=== PATIENT | female | born 1970 | race Caucasian/White ===

== ENCOUNTER 2017-11-21 06:53 | Emergency (ER) | payer MEDICAID ==
[2017-11-21] MEDS ORDERED: KETOROLAC 60 MG/2 ML VIAL IM STA (07:28)
[2017-11-21] MEDS ORDERED: DEXAMETHASONE 10 MG/ML VIAL PO STA (07:28)
[2017-11-21] MEDS ORDERED: oxyCOD/ACETAMIN 5 MG/325 MG TABLET PO STA (07:28)
--- NOTE | 2017-11-21 07:28 | ED Physician Documentation ---
PD HPI SKIN - Stated complaint Stated Complaint: RASH/UPPER RT SIDE PX - Chief complaint Chief Complaint: General - History obtained from History obtained from: Patient - History of Present Illness Timing - onset: How many days ago (2-3) Timing - duration: Days (initially with some aching in right chest 2-3 days ago without obvious injury or reason. Started with some itching in right chest yesterday then rash last evening, increasing into today. Very painful. Feeling of general malaise as well.) Timing - details: Gradual onset, Still present Location: Chest (right chest in band at just below the breast level.) Quality / character: Itchy, Painful, Discolored (red), Vesicular Associated symptoms: Myalgias. No: Fever Contributing factors: No: Exposed to medication, Exposed to food, Insect bite / sting Similar symptoms before: Has not had sx before Recently seen: Not recently seen Review of Systems Constitutional: reports: Chills, Myalgias, Fatigue. denies: Fever Nose: denies: Rhinorrhea / runny nose, Congestion Throat: denies: Sore throat Respiratory: denies: Cough GI: denies: Abdominal Pain, Nausea, Vomiting, Diarrhea : denies: Dysuria, Frequency Skin: reports: Rash, Lesions Neurologic: denies: Focal weakness, Numbness, Headache PD PAST MEDICAL HISTORY - Past Medical History Past Medical History: No Cardiovascular: None Respiratory: None Neuro: None Endocrine/Autoimmune: None GI: None [employer]: None : None HEENT: None Psych: None Musculoskeletal: None Derm: None - Past Surgical History Past Surgical History: Yes - Present Medications Home Medications: Ambulatory Orders Medication Instructions Recorded Confirmed Acyclovir 800 mg PO 5XD #35 tablet 11/21/17 Amitriptyline [Elavil] 25 mg PO HS #30 tablet 11/21/17 Dexamethasone [Decadron] 4 mg PO DAILY #5 tablet 11/21/17 Oxycodone HCl/Acetaminophen 1 each PO Q6H PRN #25 tablet 11/21/17 [Percocet 5-325 mg Tablet] - Allergies Allergies/Adverse Reactions: Allergies Allergy/AdvReac Type Severity Reaction Status Date / Time iron AdvReac Anaphylaxis Verified 11/21/17 07:04 - Social History Does the pt smoke?: No Smoking Status: Never smoker Does the pt drink ETOH?: Yes Does the pt have substance abuse?: No - Immunizations Immunizations are current?: Yes - POLST Patient has POLST: No PD ED PE NORMAL - Vitals Vital signs reviewed: Yes - General General: Alert and oriented X 3, No acute distress, Well developed/nourished - Neck Neck: Supple, no meningeal sign, No adenopathy - Respiratory Respiratory: No respiratory distress - Derm Derm: Warm and dry, Other (right chest with band of blistering red patches just below breast level to front sternum and around to the back, c/w shingles. ) - Extremities Extremities: No deformity, No tenderness to palpate - Neuro Neuro: Alert and oriented X 3, No motor deficit, Normal speech Results - Vitals Vitals: Vital Signs - 24 hr 11/21/17 11/21/17 07:01 07:57 Temperature 36.7 C Heart Rate 75 74 Respiratory 18 16 Rate Blood Pressure 148/98 H 162/89 H O2 Saturation 99 97 Oxygen O2 Source Room air PD MEDICAL DECISION MAKING - ED course Complexity details: considered differential, d/w patient - Sepsis Event Vital Signs: Vital Signs - 24 hr 11/21/17 11/21/17 07:01 07:57 Temperature 36.7 C Heart Rate 75 74 Respiratory 18 16 Rate Blood Pressure 148/98 H 162/89 H O2 Saturation 99 97 Oxygen O2 Source Room air Departure - Departure Disposition: 01 Home, Self Care Clinical Impression: Shingles rash Qualifiers: Herpes zoster complications: without complications Qualified Code(s): B02.9 - Zoster without complications Condition: Stable Record reviewed to determine appropriate education?: Yes Instructions: ED Shingles Prescriptions: Acyclovir 800 mg PO 5XD #35 tablet Amitriptyline [Elavil] 25 mg PO HS #30 tablet Dexamethasone [Decadron] 4 mg PO DAILY #5 tablet Oxycodone HCl/Acetaminophen [Percocet 5-325 mg Tablet] 1 each PO Q6H PRN #25 tablet PRN Reason: Pain Comments: Acyclovir to reduce the virus amount and shorten the course of this. Decadron for inflammation of the nerve. Elavil at night to decrease the nerve irritation and continue this for about a month. Percocet if needed for pain. Drink lots of fluids and add a stool softener so you do not get constipated. This will likely take several days to week to dry up and then the pain can continue for several weeks after that. Discharge Date/Time: 11/21/17 08:10
[2017-11-21] MEDS ORDERED: CHERRY SYRUP 10 ML UDC PO ONE (07:46)
[2017-11-21 07:57] VITALS: BP 162/89
== END 2017-11-21 08:10 | disposition home or self-care (01) ==
LOC: ED 06:53
DX: B02.9 Zoster without complications (principal)
CPT/HCPCS: 96372; 99283; A9270